=== PATIENT | female | born 1985 | race Caucasian/White ===

== ENCOUNTER 2021-08-05 22:06 | Emergency (ER) | payer OTHER ==
[~2021-08-05] VITALS: Ht 160 cm; Wt 79.5 kg
--- NOTE | 2021-08-05 22:12 | PHYS DOC ---
Adult General HPI HPI Patient is a 36-year-old female who presents with a chief complaint of epigastric and right upper quadrant abdominal pain which started earlier in the day, 7 out of 10, sharp in burning in nature with mild nausea but no vomiting. 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 Denies any recent travel, traumas, illnesses, fevers, chest pain, shortness of breath, vomiting, diarrhea, dysuria, hematuria, blood in the stool or hematemesis. Review of Systems Review of Systems Review of systems otherwise unremarkable except noted in HPI Physical Exam Physical Exam Constitutional: Well developed, well nourished, no acute distress, non-toxic appearance. [] HENT: Normocephalic, atraumatic, oropharynx moist, Eyes: conjunctiva normal, no discharge. [] Neck: Normal range of motion, no tenderness, supple, no stridor. [] Cardiovascular:Heart rate regular rhythm, no murmur [] Lungs & Thorax: Bilateral breath sounds clear to auscultation [] Abdomen: soft, epigastric/right upper quadrant tenderness, no guarding, no rebound, no masses, no pulsatile masses. [] Skin: Warm, dry, no erythema, no rash. [] Back: no CVA tenderness. [] Extremities: No tenderness, o edema. [] Neurologic: Alert and oriented X 3, normal motor function, normal sensory function, no focal deficits noted. [] Psychologic: Affect normal, judgement normal, mood normal. [] EKG EKG [] Radiology/Procedures Radiology/Procedures [] Heart Score C/O Chest Pain: No Risk Factors: Risk Factors: DM, Current or recent (<one month) smoker, HTN, HLP, family history of CAD, obesity. Risk Scores: Risk Factors: DM, Current or recent (<one month) smoker, HTN, HLP, family h istory of CAD, obesity. Course & Med Decision Making Course & Med Decision Making Patient is a 36-year-old female presents with abdominal pain Vital signs not concerning. Physical exam noted above. Patient placed on the m onitor with IV access established and IV fluid given. Given pain medicine. Laboratory analysis with mild leukocytosis otherwise unremarkable. CT with some nonspecific mild periportal edema and a right corpus luteum cyst. Discussed all findings with family. Advised on symptom control at home. Advised to follow-up with primary care as soon as she can to set up a follow-up appointment. Gave return precautions to the ED. Family grateful, verbalized understanding and agree with plan of discharge. Dragon Disclaimer Dragon Disclaimer This electronic medical record was generated, in whole or in part, using a voice recognition dictation system. Departure Departure: Impression: Primary Impression: Abdominal pain Disposition: HOME / SELF CARE / HOMELESS Condition: IMPROVED Referrals: SADE SYED DO (PCP) Patient Instructions: Abdominal Pain (Nonspecific) Additional Instructions: Thank you for coming into the emergency department tonight and allowing us to take care of you. Please read the attached information carefully to go back over some of the things we discussed. You can continue Tylenol and Benadryl as needed at home for symptom control. It is very important you follow-up as soon as you can with your primary care physician update on ED visit and set up a follow-up appointment. Please come back to the emergency department immediately with new or concerning symptoms as we discussed. SOURAV MAJOR MD Aug 05, 2021 22:12
[2021-08-05] MEDS ORDERED: IOHEXOL 300 MG/ML 75 ML VIAL. IV ONE (22:45)
[2021-08-05] MEDS ORDERED: ONDANSETRON PF 4 MG/2 ML VIAL. IVP ONE (23:00)
[2021-08-05 23:15] LABS: BASO # 0.1 x10^3/uL (0.0-0.2); BASO % 1 % (0-3); EOS # 0.2 x10^3/uL (0.0-0.7); EOS % 2 % (0-3); HEMATOCRIT 32.8 % (36.0-47.0); HEMOGLOBIN 10.4 g/dL (12.0-15.5); LYMPH # 2.1 x10^3/uL (1.0-4.8); LYMPH % 17 % (24-48); MEAN CORPUSCULAR HEMOGLOBIN 27 pg (25-35); MEAN CORPUSCULAR HGB CONC 32 g/dL (31-37); MEAN CORPUSCULAR VOLUME 84 fL (79-100); MONO # 0.9 x10^3/uL (0.0-1.1); MONO % 7 % (0-9); NEUT # 9.4 x10^3uL (1.8-7.7); NEUT % 74 % (31-73); PLATELET COUNT 334 x10^3/uL (140-400); RED BLOOD COUNT 3.93 x10^6/uL (3.50-5.40); RED CELL DISTRIBUTION WIDTH 16.2 % (11.5-14.5); WHITE BLOOD COUNT 12.6 x10^3/uL (4.0-11.0)
[2021-08-05 23:17] LABS: CLARITY,URINE CLEAR; COLOR,URINE YELLOW
[2021-08-05 23:18] LABS: BACTERIA,URINE 0 /HPF (0-FEW); BILIRUBIN,URINE NEG (NEG); GLUCOSE,URINE NEG (NEG); NITRITE,URINE NEG (NEG); RBC,URINE 0 /HPF (0-2); SQUAMOUS EPITHELIAL CELL,UR OCC /LPF; UROBILINOGEN,URINE 0.2 mg/dL (0.2 mg/dL); WBC,URINE OCC /HPF (0-4)
[2021-08-05 23:25] LABS: GFR 63.5; POTASSIUM 4.3 mmol/L (3.5-5.1)
[2021-08-05 23:31] LABS: ALBUMIN 3.6 g/dL (3.4-5.0); TOTAL BILIRUBIN 0.2 mg/dL (0.2-1.0); TOTAL PROTEIN 7.3 g/dL (6.4-8.2)
--- NOTE | 2021-08-05 23:42 | RAD ---
EXAMINATION: CT ABDOMEN+PELVIS W CLINICAL HISTORY: Epigastric and right upper quadrant abdominal pain. History of sleeve gastrectomy TECHNIQUE: CT of the abdomen and pelvis was performed using standard technique, scanning from just ab ove the dome of the diaphragm to the symphysis pubis following administration of intravenous contrast . CT Dose Reduction Employed: One or more of the following individualized dose reduction techniques wer e utilized for this examination: 1. Automated exposure control 2. Adjustment of the mA and/or kV ac cording to patient size 3. Use of iterative reconstruction technique. COMPARISON: None FINDINGS: Visualized heart and lungs unremarkable. Mild periportal edema, nonspecific. Liver otherwise unremarkable. Gallbladder, pancreas, spleen, adre nal glands, and kidneys unremarkable. Minimally filled urinary bladder suboptimally evaluated. Uterus within normal limits for patient's ag e. Bilateral multifollicular ovaries with small cystic lesion on the right demonstrating a thick hype rdense wall, possibly an involuting corpus luteum/cyst. Postoperative changes related to sleeve gastrectomy. No bowel dilation or definite wall thickening. A ppendix within normal limits. No abdominal aortic or iliac artery aneurysm. No evidence of acute osseous abnormality. IMPRESSION: Nonspecific mild periportal edema. Probable involuting right corpus luteum/cyst. Electronically signed by: Abraham Mark DO (08/05/2021 11:39 PM) [facility]
[2021-08-06 00:05] VITALS: BP 98/53
== END 2021-08-06 00:29 | disposition home or self-care (01) ==
LOC: ER 22:06
DX: R10.11 Right upper quadrant pain (principal)
CPT/HCPCS: 36415; 74177; 80053; 81001; 81025; 83690; 85025; 96374; 96375; 99284; J2405; J3010; Q9967